=== PATIENT | male | born 1975 | race African-American/Black ===

== ENCOUNTER 2016-12-22 22:27 | Emergency (ER) | payer OTHER | END 2016-12-22 23:50 | disposition home or self-care (01) | LOC: D.ER 22:27 | DX: K08.89 Other specified disorders of teeth and supporting structures (principal); G89.29 Other chronic pain; I10 Essential (primary) hypertension; F17.200 Nicotine dependence, unspecified, uncomplicated ==

== ENCOUNTER 2017-03-24 21:57 | Emergency (ER) | payer OTHER | END 2017-03-25 00:13 | disposition left against medical advice (07) | LOC: D.ER 21:57 | DX: Z03.89 Encounter for observation for other suspected diseases and conditions ruled out (principal); I10 Essential (primary) hypertension; E11.9 Type 2 diabetes mellitus without complications ==

== ENCOUNTER 2017-05-28 16:37 | Emergency (ER) | payer OTHER ==
[2017-05-28 17:00] LABS: BASOPHILS 0.2 % (0-2); EOSINOPHILS 0.9 % (0-7); HEMATOCRIT 47.1 % (42.0-54.0); IMMATURE GRANULOCYTES 0.2 % (0-5); LYMPHOCYTES 22.9 % (15-50); MCH 32.3 pg (26.0-34.0); MEAN PLATELET VOLUME 11.8 fL (7.4-10.4); MONOCYTES 6.8 % (2-11); PLATELET COUNT 203 10x3/uL (130-400); RBC 4.96 10x6/uL (4.20-6.10)
[2017-05-28 17:12] LABS: APTT 30.5 SECONDS (22.8-39.4); INR 0.99 (0.85-1.17); PROTIME 12.9 SECONDS (11.6-15.0)
[2017-05-28 17:18] LABS: ALBUMIN 3.8 g/dL (3.4-5.0); ANION GAP 10.7 mmol/L (8-16); BILIRUBIN - TOTAL 0.84 mg/dL (0.2-1.3); CALCIUM 8.7 mg/dL (8.5-10.1); CREATININE - SERUM 1.2 mg/dL (0.6-1.3); POTASSIUM - SERUM 3.7 mmol/L (3.5-5.1); PROTEIN - SERUM 8.2 g/dL (6.4-8.2)
== END 2017-05-28 17:53 | disposition other institution (70) ==
LOC: D.ER 16:37
PROVIDERS: Nurse Practitioner Acute Care
DX: S01.402A Unspecified open wound of left cheek and temporomandibular area, initial encounter (principal); W34.00XA Accidental discharge from unspecified firearms or gun, initial encounter; Y93.89 Activity, other specified; Y92.89 Other specified places as the place of occurrence of the external cause; F17.200 Nicotine dependence, unspecified, uncomplicated

== ENCOUNTER 2019-09-15 22:28 | Emergency (ER) | payer SELFPAY ==
[~2019-09-15] VITALS: Ht 193 cm; Wt 113.6 kg
[2019-09-15 22:34] VITALS: Ht 193 cm; Wt 113.6 kg
[2019-09-15] MEDS ORDERED: BP MEDS (22:35)
[2019-09-15] MEDS ORDERED: LIPITOR20 MG (22:35)
[2019-09-15] MEDS ORDERED: GLUCOTROL 5 MG T5 MG (22:35)
[2019-09-15] MEDS ORDERED: NAPROSYN500 MG PO (23:06)
[2019-09-15] MEDS ORDERED: GLUCOTROL 5 MG T5 MG PO (23:06)
[2019-09-15 23:26] VITALS: BP 139/81
== END 2019-09-15 23:26 | disposition home or self-care (01) ==
LOC: D.ER 22:28
DX: M54.16 Radiculopathy, lumbar region (principal); M79.5 Residual foreign body in soft tissue; M25.551 Pain in right hip; E11.9 Type 2 diabetes mellitus without complications; Z79.84 Long term (current) use of oral hypoglycemic drugs; I10 Essential (primary) hypertension

== ENCOUNTER 2019-09-18 23:24 | Emergency (ER) | payer SELFPAY ==
[~2019-09-18] VITALS: Ht 193 cm; Wt 113.6 kg
[~2019-09-18 23:24] MED LIST: BP MEDS; GLUCOTROL 5 MG T5 MG; GLUCOTROL 5 MG T5 MG PO; LIPITOR20 MG; NAPROSYN500 MG PO
[2019-09-18 23:30] VITALS: Ht 193 cm; Wt 113.6 kg
[2019-09-19] LABS: HEMATOCRIT 44.4 % (42.0-54.0); LYMPHOCYTES 23.1 % (15-50); MCH 30.7 pg (26.0-34.0); MCHC 33.8 g/dL (31.0-37.0); MCV 90.8 fL (80.0-100.0); NEUTROPHILS 68.4 % (40-80); PLATELET COUNT 156 10x3/uL (130-400); RBC 4.89 10x6/uL (4.20-6.10); RDW 12.7 % (11.5-14.5); WBC 9.7 10x3/uL (4.8-10.8)
[2019-09-19] MEDS ORDERED: MUCINEX DM ER1 EAC1 PO (00:07)
[2019-09-19] MEDS ORDERED: TYLENOL W/CODEI1 TAB PO (00:07)
[2019-09-19 00:15] LABS: ANION GAP 13.5 mmol/L (8-16); CALCIUM 8.9 mg/dL (8.5-10.1); CARBON DIOXIDE 24.3 mmol/L (21.0-32.0); CREATININE - SERUM 1.2 mg/dL (0.6-1.3); POTASSIUM - SERUM 3.8 mmol/L (3.5-5.1)
[2019-09-19 00:25] LABS: ALBUMIN 3.8 g/dL (3.4-5.0); APPEARANCE HAZY (CLEAR); BILIRUBIN NEGATIVE (NEGATIVE); BILIRUBIN - TOTAL 0.25 mg/dL (0.2-1.3); C-REACTIVE PROTEIN 0.4 mg/dL (0.0-0.9); COLOR YELLOW (YELLOW); GLUCOSE NEGATIVE (NEGATIVE); KETONE NEGATIVE (NEGATIVE); NITRITE NEGATIVE (NEGATIVE); PROTEIN NEGATIVE (NEGATIVE); PROTEIN - SERUM 7.6 g/dL (6.4-8.2); SPECIFIC GRAVITY 1.015 (1.005-1.020); UROBILINOGEN NORMAL (NORMAL)
[2019-09-19 00:28] LABS: BACTERIA FEW /hpf (NEGATIVE); EPITHELIAL CELLS 0-5 /hpf (0-5); RED CELLS - URINE 0-5 /hpf (0-5)
[2019-09-19 01:06] VITALS: BP 157/102
== END 2019-09-19 01:06 | disposition home or self-care (01) ==
LOC: D.ER 23:24
PROVIDERS: Family Medicine
DX: M79.5 Residual foreign body in soft tissue (principal); R05 Cough; N39.0 Urinary tract infection, site not specified; E11.9 Type 2 diabetes mellitus without complications; Z79.84 Long term (current) use of oral hypoglycemic drugs; I10 Essential (primary) hypertension; Z72.0 Tobacco use; E78.5 Hyperlipidemia, unspecified; W19.XXXA Unspecified fall, initial encounter; Y93.9 Activity, unspecified

== ENCOUNTER 2019-09-24 22:21 | Emergency (ER) | payer SELFPAY ==
[~2019-09-24] VITALS: Ht 193 cm; Wt 108.9 kg
[~2019-09-24 22:21] MED LIST changes: +MUCINEX DM ER1 EAC1 PO; +TYLENOL W/CODEI1 TAB PO
[2019-09-24 22:35] VITALS: Ht 193 cm; Wt 108.9 kg
[2019-09-24] MEDS ORDERED: TESSALON PERLE100 MG PO (23:52)
[2019-09-24] MEDS ORDERED: ALBUTEROL SULF8.5 GM INH (23:52)
[2019-09-24 23:58] LABS: APPEARANCE HAZY (CLEAR); BILIRUBIN NEGATIVE (NEGATIVE); COLOR YELLOW (YELLOW); GLUCOSE NEGATIVE (NEGATIVE); KETONE NEGATIVE (NEGATIVE); NITRITE NEGATIVE (NEGATIVE); PROTEIN NEGATIVE (NEGATIVE); SPECIFIC GRAVITY 1.015 (1.005-1.020); UROBILINOGEN NORMAL (NORMAL)
[2019-09-24 23:59] LABS: BACTERIA FEW /hpf (NEGATIVE); EPITHELIAL CELLS 0-5 /hpf (0-5); RED CELLS - URINE NONE SEEN /hpf (0-5)
[2019-09-25 00:15] VITALS: BP 122/85
== END 2019-09-25 00:15 | disposition home or self-care (01) ==
LOC: D.ER 22:21
PROVIDERS: Emergency Medicine
DX: R05 Cough (principal); R10.12 Left upper quadrant pain; E11.9 Type 2 diabetes mellitus without complications; Z79.84 Long term (current) use of oral hypoglycemic drugs; I10 Essential (primary) hypertension; E78.5 Hyperlipidemia, unspecified

== ENCOUNTER 2019-10-08 19:47 | Emergency (ER) | payer SELFPAY ==
[~2019-10-08] VITALS: Ht 193 cm; Wt 113.6 kg
[~2019-10-08 19:47] MED LIST changes: +ALBUTEROL SULF8.5 GM INH; +TESSALON PERLE100 MG PO
[2019-10-08 19:49] VITALS: Ht 193 cm; Wt 113.6 kg
[2019-10-08] MEDS ORDERED: TENORMIN25 MG PO (21:10)
[2019-10-08] MEDS ORDERED: MIRALAX17 GM PO (21:10)
[2019-10-08 21:40] VITALS: BP 149/96
== END 2019-10-08 21:40 | disposition home or self-care (01) ==
LOC: D.ER 19:47
DX: K59.00 Constipation, unspecified (principal); I10 Essential (primary) hypertension; E11.9 Type 2 diabetes mellitus without complications; Z79.84 Long term (current) use of oral hypoglycemic drugs; E78.5 Hyperlipidemia, unspecified

== ENCOUNTER → 2020-01-09 14:24 | Outpatient (CLI) | payer MEDICAID ==
[2019-10-08 19:49] VITALS: BMI 30.5
[~2020-01-09 14:24] MED LIST changes: +MIRALAX17 GM PO; +TENORMIN25 MG PO
== END | disposition home or self-care (01) ==
LOC: D.RAD 14:24
PROVIDERS: ATTEND Surgery
DX: R10.9 Unspecified abdominal pain (principal)

== ENCOUNTER 2020-12-30 21:02 | Emergency (ER) | payer MEDICAID ==
[2019-10-08 19:49] VITALS: BMI 30.5
[2020-12-31] MEDS ORDERED: HYDROCODON-ACE1 EAC7 PO (00:11)
== END 2021-01-06 05:19 | disposition left against medical advice (07) ==
LOC: D.ER 21:02
DX: M54.9 Dorsalgia, unspecified (principal); Z53.21 Procedure and treatment not carried out due to patient leaving prior to being seen by health care provider

== ENCOUNTER 2020-12-30 21:43 | Emergency (ER) | payer MEDICAID ==
[~2020-12-30] VITALS: Ht 193 cm; Wt 95.3 kg
[2020-12-30 22:04] VITALS: Ht 193 cm; Wt 95.3 kg
[2020-12-31] MEDS ORDERED: HYDROCODON-ACE1 EAC7 PO (00:11)
[2020-12-31 00:58] VITALS: BP 136/91
== END 2020-12-31 01:02 | disposition home or self-care (01) ==
LOC: D.ER 21:43
DX: S30.0XXA Contusion of lower back and pelvis, initial encounter (principal); E11.9 Type 2 diabetes mellitus without complications; I10 Essential (primary) hypertension; Z79.84 Long term (current) use of oral hypoglycemic drugs; W22.8XXA Striking against or struck by other objects, initial encounter; Y93.9 Activity, unspecified; Y92.9 Unspecified place or not applicable; M54.9 Dorsalgia, unspecified

== ENCOUNTER 2021-03-03 14:28 | Emergency (ER) | payer OTHER ==
[~2021-03-03] VITALS: Ht 193 cm; Wt 117.7 kg
[~2021-03-03 14:28] MED LIST changes: +HYDROCODON-ACE1 EAC7 PO
[2021-03-03 14:39] VITALS: BP 140/108; Ht 193 cm; Wt 117.7 kg
[2021-03-03] MEDS ORDERED: ORAL ANALGESIC9 GM TOPICAL (15:26)
[2021-03-03] MEDS ORDERED: PENICILLIN V P500 MG PO (15:26)
== END 2021-03-03 15:31 | disposition home or self-care (01) ==
LOC: D.ER 14:28
DX: K04.7 Periapical abscess without sinus (principal); K08.89 Other specified disorders of teeth and supporting structures; E11.9 Type 2 diabetes mellitus without complications; I10 Essential (primary) hypertension; Z79.84 Long term (current) use of oral hypoglycemic drugs